=== PATIENT | female | born 1990 | race Caucasian/White ===

== ENCOUNTER 2016-12-19 20:45 | Emergency (ER) | payer SELFPAY ==
[~2016-12-19 20:45] MED LIST: OMPR20CCR PO; PREN0.01 PO
[2016-12-19 21:04] VITALS: BP 132/83; PULSE 97; RESP 15; TEMP 98.6; O2SAT 99
[2016-12-19] MEDS ORDERED: SODIUM CHLOR 0.9% 1000 ML INJ 1,000 ML IV SCH (21:38)
[2016-12-19] MEDS ORDERED: ONDANSETRON HCL 4 MG/2 ML VIAL IVP ONE (21:45)
[2016-12-19] MEDS ORDERED: KETOROLAC TROMETHAMINE 30 MG/ML (IVP) VIAL IVP ONE (21:45)
[2016-12-19] MEDS ORDERED: SODIUM CHLORIDE 0.9% FLUSH 10 ML FLUSH IV FLUSH PRN (21:45)
--- NOTE | 2016-12-19 21:57 | PD ---
HPI Chief Complaint: Cold / Flu Symptoms Time Seen by Provider: 21:12 Travel History International Travel<30 days: No Contact w/Intl Traveler<30days: No Traveled to known affect area: No History of Present Illness HPI This is a 26-year-old female presents emergency Department with multiple complaints. Patient states she's been having a cough and congestion as well as body aches right upper quadrant abdominal pain mild nausea without vomiting for the past few days. She states she's also had a fever to 101 Fahrenheit. She states she has a history of liver disease. Patient states she's been under a lot of stress recently and thinks this has something to do with it. She also endorses some vaginal bleeding and vaginal discharge. She denies any trauma denies any headaches or neck pain or extremity pain. Denies any skin color change. Denies denies Any bruising or easy bleeding.Denies any blood in the stool denies any blood in the emesis. Denies any melena. PFSH Past Medical History Asthma: Yes Medical other: Yes (cirrhosis) Tetanus Vaccination: > 5 Years Influenza Vaccination: No ?: Not LMP: 12/03/16 : 7 Para: 4 Miscarriage: 3 : 1 Tubal Ligation: Yes Social History Alcohol Use: Yes (rare) Tobacco Use: Yes (1 ppd) Substance Use: No Allergies-Medications (Allergen,Severity, Reaction): Coded Allergies: Bees (Verified Allergy, Severe, 12/19/16) Pineapple (Verified Allergy, Intermediate, Rash, 12/19/16) Tylenol (Verified Adverse Reaction, Unknown, PAIN, NAUSEA, 12/19/16) R/T LIVER PROBLEMS PER PATIENT Reported Meds & Prescriptions Reported Meds & Active Scripts Active Zofran Odt (Ondansetron Odt) 4 Mg Tab 4 Mg SL Q6HR PRN Review of Systems Except as stated in HPI: all other systems reviewed are Neg Physical Exam Narrative GENERAL: [Will develop well-nourished no apparent distress SKIN: Focused skin assessment warm/dry. HEAD: Atraumatic. Normocephalic. EYES: Pupils equal and round. No scleral icterus. No injection or drainage. ENT: No nasal bleeding or discharge. Mucous membranes pink and moist. NECK: Trachea midline. No JVD. CARDIOVASCULAR: Regular rate and rhythm. No murmur appreciated. RESPIRATORY: No accessory muscle use. Clear to auscultation. Breath sounds equal bilaterally. GASTROINTESTINAL: Abdomen soft, moderately tender in the right upper quadrant without any rebound or percussive tenderness, nondistended. Hepatic and splenic margins not palpable. No CVA tenderness MUSCULOSKELETAL: No obvious deformities. No clubbing. No cyanosis. No edema. NEUROLOGICAL: Awake and alert. No obvious cranial nerve deficits. Motor grossly within normal limits. Normal speech. PSYCHIATRIC: Appropriate mood and affect; insight and judgment normal. Data Data Last Documented VS Vital Signs Date Time Temp Pulse Resp B/P Pulse Ox O2 Delivery O2 Flow Rate FiO2 12/19/16 21:18 18 98 Room Air 12/19/16 21:04 98.6 97 132/83 Orders Urinalysis - C+S If Indicated (12/19/16 21:38) Ondansetron Inj (Zofran Inj) (12/19/16 21:45) Sodium Chlor 0.9% 1000 Ml Inj (Ns 1000 M (12/19/16 21:38) Sodium Chloride 0.9% Flush (Ns Flush) (12/19/16 21:45) Ketorolac Inj (Toradol Inj) (12/19/16 21:45) Ketorolac Inj (Toradol Inj) (12/19/16 22:00) Ondansetron Odt (Zofran Odt) (12/19/16 22:00) Urine Culture (12/19/16 21:47) Labs Laboratory Tests Test 12/19/16 21:47 Urine Color LIGHT-YELLOW Urine Turbidity HAZY Urine pH 5.5 Urine Specific Mobile 1.009 Urine Protein NEG mg/dL Urine Glucose (UA) NEG mg/dL Urine Ketones NEG mg/dL Urine Occult Blood NEG Urine Nitrite NEG Urine Bilirubin NEG Urine Urobilinogen LESS THAN 2.0 MG/DL Urine Leukocyte Esterase LARGE Urine WBC 18 /hpf Urine Squamous Epithelial 19 /hpf Cells Microscopic Urinalysis Comment CULTURE INDICATED MDM Medical Decision Making Medical Screen Exam Complete: Yes Emergency Medical Condition: Yes Differential Diagnosis Gastritis, gastric enteritis, , urinary tract infection, STD, PID, cholecystitis, pancreatitis. Narrative Course Patient was roomed in emergency department, I recommended battery of lab tests as well as a pelvic exam urine test and urine test. Based on the outcomes of her labs and a reassessment after pain medicine ulcer minus CAT scan. The patient had mentioned nursing that she wanted to leave without having any blood work. Initially accepting of mine plan the patient told nursing that she did not have any blood work when nurse went in to draw. I have revisit the patient she states that she doesn't think anything is wrong with her liver. I discussed with her that I'm concerned about other possibilities including cholecystitis and pancreatitis as well as gastritis. Told her that I could give no reassurances that whatever was happening to her was not life-threatening without testing. I also discussed that leaving without testing could lead to significant risk of and permanent disability as well as organ failure. She verbalized understanding and accepted risks and still says she wanted to go home. I discussed with her that I be happy to prescribe her some Zofran but no pain medicine to go home with. I discussed with her at length return to ED criteria. I've asked to sign a formal AMA paper and she is agreed. She was invited to return to the emergency department at any time should she deem necessary. Diagnosis Primary Impression: Abdominal pain Qualified Code: R10.11 - Right upper quadrant abdominal pain Referrals: [facility] Patient Instructions: Acute Abdominal Pain (DC), General Instructions Med/Other Pt SpecificInfo: Prescription(s) given Scripts Ondansetron Odt (Zofran Odt)4 Mg Tab4 Mg SL Q6HR PRN (Nausea/Vomiting) #12 TAB Ref 0 Prov:Azam Stewart MD 12/19/16 Disposition: 07 AGAINST MEDICAL ADVICE Condition: Stable Azam Stewart MD December 19, 2016 21:57
[2016-12-19] MEDS ORDERED: ZOFR4TAB3 SL (21:58)
[2016-12-19] MEDS ORDERED: ONDANSETRON ODT 4 MG TAB PO ONE (22:00)
[2016-12-19] MEDS ORDERED: KETOROLAC TROMETHAMINE 60 MG/2 ML (IM) VIAL IM ONE (22:00)
[2016-12-19 22:19] LABS: BLOOD, URINE NEG (NEG); COMMENT (UR) CULTURE INDICATED; CULTURE IF INDICATED CULTURE INDICATED; GLUCOSE,URINE NEG (NEG); KETONE, URINE NEG (NEG); NITRITE,URINE NEG (NEG); PH, URINE 5.5 (5.0-8.5); SQUAMOUS EPITHELIAL CELL URINE 19 /hpf (0-5); URINE COLOR LIGHT-YELLOW (YELLW/STRAW)
== END 2016-12-19 22:15 | disposition left against medical advice (07) ==
LOC: NEPD 20:45
DX: R10.11 Right upper quadrant pain (principal); F17.210 Nicotine dependence, cigarettes, uncomplicated; Z53.29 Procedure and treatment not carried out because of patient's decision for other reasons
CPT/HCPCS: 81001; 84703; 87086; 96372; 99284; J1885

== ENCOUNTER 2017-01-10 22:02 | Emergency (ER) | payer SELFPAY ==
[~2017-01-10 22:02] MED LIST changes: -OMPR20CCR PO; -PREN0.01 PO; +ZOFR4TAB3 SL
[2017-01-10 22:03] VITALS: BP 118/83; PULSE 96; RESP 20; TEMP 99.1; O2SAT 98
--- NOTE | 2017-01-10 22:22 | PD ---
Physical Exam Date Seen by Provider: Jan 10, 2017 Time Seen by Provider: 22:20 Data Data Last Documented VS Vital Signs Date Time Temp Pulse Resp B/P Pulse Ox O2 Delivery O2 Flow Rate FiO2 01/10/17 22:03 99.1 96 20 118/83 98 Room Air [facility] Supervised Visit with CECILIA: No Narrative Course 26 YO F with complaint of N/V/D since yesterday. Also complains of bilateral ear pain. Denies dysuria. LMP 5/9. Vitals reviewed. Patient seen in triage. Awaiting bed placement. Lisa Lee Jan 10, 2017 22:22
[2017-01-10] MEDS ORDERED: SODIUM CHLOR 0.9% 1000 ML INJ 1,000 ML IV SCH (22:44)
[2017-01-10] MEDS ORDERED: SODIUM CHLORIDE 0.9% FLUSH 10 ML FLUSH IV FLUSH PRN (22:45)
[2017-01-10] MEDS ORDERED: KETOROLAC TROMETHAMINE 30 MG/ML (IVP) VIAL IVP ONE (22:45)
[2017-01-10] MEDS ORDERED: ONDANSETRON HCL 4 MG/2 ML VIAL IVP ONE (22:45)
--- NOTE | 2017-01-10 22:48 | PD ---
HPI Chief Complaint: GI Complaint Time Seen by Provider: 22:37 Travel History International Travel<30 days: No Contact w/Intl Traveler<30days: No Traveled to known affect area: No History of Present Illness HPI 26-year-old female here with complaint of nausea vomiting diarrhea. Patient's significant other was ill earlier this week with similar symptoms. She began to have a scant amount of diarrhea yesterday, 3-4 episodes. Symptoms worsened today and she states that she's had up to 40 episodes of loose stools today. These are frankly watery, but very small. No hematochezia. She notes 3 episodes of emesis. No hematemesis. She notes minimal to no abdominal cramping prior to defecation but relief thereafter. No fevers or chills. She notes an associated pressure fullness in her ear is been no drainage. [facility] Past Medical History Asthma: Yes Cirrhosis: Yes ?: Unknown LMP: 12/02/16 : 7 Para: 4 Miscarriage: 3 : 1 Tubal Ligation: Yes Social History Alcohol Use: Yes (rare) Tobacco Use: Yes (1 ppd) Substance Use: No Allergies-Medications (Allergen,Severity, Reaction): Coded Allergies: Bees (Verified Allergy, Severe, 01/10/17) Pineapple (Verified Allergy, Intermediate, Rash, 01/10/17) Tylenol (Verified Adverse Reaction, Unknown, PAIN, NAUSEA, 01/10/17) R/T LIVER PROBLEMS PER PATIENT Reported Meds & Prescriptions Reported Meds & Active Scripts Active Zofran Odt (Ondansetron Odt) 4 Mg Tab 4 Mg SL Q6HR PRN Review of Systems Except as stated in HPI: all other systems reviewed are Neg Physical Exam Narrative GENERAL: Well-appearing female in no acute distress SKIN: Focused skin assessment warm/dry. HEAD: Normocephalic. EYES: No scleral icterus. No injection or drainage. ENT: No nasal bleeding or discharge. Mucous membranes pink and moist. TMs clear bilaterally NECK: Supple CARDIOVASCULAR: Regular rate and rhythm. No murmur appreciated. RESPIRATORY: No accessory muscle use. Clear to auscultation. Breath sounds equal bilaterally. GASTROINTESTINAL: Abdomen soft, non-tender, nondistended. Hepatic and splenic margins not palpable. MUSCULOSKELETAL: Normal gait NEUROLOGICAL: Awake and alert. Motor grossly within normal limits. Normal speech. PSYCHIATRIC: Appropriate mood and affect; insight and judgment normal. Data Data Last Documented VS Vital Signs Date Time Temp Pulse Resp B/P Pulse Ox O2 Delivery O2 Flow Rate FiO2 01/10/17 22:58 16 97 Room Air 01/10/17 22:03 99.1 96 118/83 Orders Basic Metabolic Panel (Bmp) (01/10/17 22:44) Complete Blood Count With Diff (01/10/17 22:44) Iv Access Insert/Monitor (01/10/17 22:44) Oximetry (01/10/17 22:44) Ondansetron Inj (Zofran Inj) (01/10/17 22:45) Sodium Chlor 0.9% 1000 Ml Inj (Ns 1000 M (01/10/17 22:44) Sodium Chloride 0.9% Flush (Ns Flush) (01/10/17 22:45) Ketorolac Inj (Toradol Inj) (01/10/17 22:45) Labs Laboratory Tests Test 01/10/17 22:47 White Blood Count 4.1 TH/MM3 Red Blood Count 5.56 MIL/MM3 Hemoglobin 15.2 GM/DL Hematocrit 46.2 % Mean Corpuscular Volume 83.1 FL Mean Corpuscular Hemoglobin 27.2 PG Mean Corpuscular Hemoglobin 32.8 % Concent Red Cell Distribution Width 13.8 % Platelet Count 192 TH/MM3 Mean Platelet Volume 9.2 FL Neutrophils (%) (Auto) 79.3 % Lymphocytes (%) (Auto) 6.3 % Monocytes (%) (Auto) 9.2 % Eosinophils (%) (Auto) 1.6 % Basophils (%) (Auto) 3.6 % Neutrophils # (Auto) 3.2 TH/MM3 Lymphocytes # (Auto) 0.3 TH/MM3 Monocytes # (Auto) 0.4 TH/MM3 Eosinophils # (Auto) 0.1 TH/MM3 Basophils # (Auto) 0.1 TH/MM3 CBC Comment DIFF FINAL Differential Comment Sodium Level 134 MEQ/L Potassium Level 3.7 MEQ/L Chloride Level 105 MEQ/L Carbon Dioxide Level 19.2 MEQ/L Anion Gap 10 MEQ/L Blood Urea Nitrogen 14 MG/DL Creatinine 0.95 MG/DL Estimat Glomerular Filtration 70 ML/MIN Rate Random Glucose 81 MG/DL Calcium Level 9.0 MG/DL MDM Medical Decision Making Medical Screen Exam Complete: Yes Emergency Medical Condition: Yes Medical Record Reviewed: Yes Differential Diagnosis 18-year-old female with recent sick contacts here with nausea vomiting diarrhea times one to 2 days. Differential includes viral gastroenteritis, food poisoning, dehydration, electrolyte abnormality and less likely peritoneal pathology given her overall benign abdominal examination. Narrative Course Patient was to monitor, IV established and blood obtained. She was given 1 L normal saline bolus, 30 mg Toradol, 4 mg Zofran. CBC, BMP unremarkable. Patient felt improved and is able to tolerate oral challenge and will be discharged home with symptomatic management Diagnosis Primary Impression: Gastroenteritis Referrals: [facility] as needed Additional Instructions: Phenergan as needed for nausea, vomiting. Imodium as needed for diarrhea. Drink plenty of nonalcoholic liquids. Med/Other Pt SpecificInfo: Prescription(s) given Scripts Loperamide (Imodium A-D)2 Mg Capsule2 Mg PO Q6H PRN (DIARRHEA) #18 CAP Ref 0 Prov:Mamie Mcdaniels MD 01/10/17 Promethazine (Phenergan)25 Mg Mxygur29 Mg PO Q6H PRN (NAUSEA OR VOMITING) #10 TAB Ref 0 Prov:Mamie Mcdaniels MD 01/10/17 Disposition: 01 DISCHARGE HOME Condition: Stable Mamie Mcdaniels MD Jan 10, 2017 22:47
[2017-01-10 22:58] VITALS: RESP 16; O2SAT 97
[2017-01-10 23:38] LABS: AUTOMATED NEUTROPHIL # 3.2 TH/MM3 (1.8-7.7); BASOPHIL # 0.1 TH/MM3 (0-0.2); BASOPHIL % 3.6 % (0.0-2.0); EOSINOPHIL # 0.1 TH/MM3 (0-0.4); EOSINOPHIL % 1.6 % (0.0-4.0); HEMATOCRIT 46.2 % (35.0-46.0); HEMO FLAGS DIFF FINAL; LYMPH % 6.3 % (9.0-44.0); LYMPHOCYTE # 0.3 TH/MM3 (1.0-4.8); MEAN CELL VOLUME 83.1 FL (80.0-100.0); MEAN CORPUSCULAR HEMOGLOBIN 27.2 PG (27.0-34.0); MEAN CORPUSCULAR HGB CONC 32.8 % (32.0-36.0); MONO % 9.2 % (0.0-8.0); NEUT % 79.3 % (16.0-70.0); PLATELET COUNT 192 TH/MM3 (150-450); RED BLOOD COUNT 5.56 MIL/MM3 (4.00-5.30); RED CELL DISTRIBUTION WIDTH 13.8 % (11.6-17.2); WHITE BLOOD COUNT 4.1 TH/MM3 (4.0-11.0)
[2017-01-10 23:46] LABS: BICARBONATE 19.2 MEQ/L (21.0-32.0); POTASSIUM 3.7 MEQ/L (3.5-5.1)
[2017-01-10] MEDS ORDERED: PROM25TA10 PO (23:51)
[2017-01-10] MEDS ORDERED: LOPE-1 PO (23:51)
== END 2017-01-11 00:23 | disposition home or self-care (01) ==
LOC: NEPE 22:02
DX: K52.9 Noninfective gastroenteritis and colitis, unspecified (principal); F17.210 Nicotine dependence, cigarettes, uncomplicated
CPT/HCPCS: 80048; 85025; 96374; 96375; 99284; J1885; J2405; J7030